=== PATIENT | female | born 1955 | race African-American/Black ===

== ENCOUNTER 2017-12-05 06:15 | Day surgery (SDC) | payer OTHER ==
[~2017-12-05] VITALS: Ht 162.6 cm; Wt 124.3 kg
[~2017-12-05 06:15] MED LIST: AMLODIPINE5 MG PO; ASPIRIN CHEWABL81 MG PO; ASPIRIN325 MG OR; ASPIRIN81 M1 OR; ATENOLOL50 MG PO; ATORVASTATIN CA20 MG PO; AVALIDE1 TA1 OR; AVELOX400 MG PO; BACTRIM DS1 TAB PO; BL ADULT ASA81 MG OR; CARAFATE1 GM/10 M1 OR; CARAFATE1 GM/10 M1 PO; CETIRIZINE10 MG PO; CIPRO XR500 M2 PO; CIPRO500 MG OR; CIPROFLOXACN500 MG PO; CLONIDINE0.1 MG PO; CLOPIDOGREL75 MG PO; COMPAZINE10 MG OR; DOXYCYCL HYC100 M3 PO; ESTRADIOL2 MG OR; FLAGYL500 MG OR; FOLIC ACID1 MG PO; FUROSEMIDE80 MG OR; HUMALOG100 MG/ML SC; HUMULIN R1 M1; HUMULIN R1 M1 SC; HYDRALAZINE50 MG PO; HYDROXYCHLOR200 MG PO; HYDROXYZ HCL25 MG PO; HYDROXYZ HCL50 MG OR; HYDROXYZ HCL50 MG PO; KEFLEX500 MG PO; KETOCONAZOLE2 % EX; KLOR-CON M2020 MEQ PO; KLOR-CON20 MEQ OR; LABETALOL200 MG PO; LANTUS100 MG/ML SC; LASIX 20 MG20 MG/TAB PO; LASIX 40 MG40 MG/TAB PO; LASIX 80 MG TAB80 M1 OR; LASIX80 MG OR; LASIX80 MG PO; LEVEMIR1000 UNITS SC; LEVOTHYROXIN100 MC1 OR; LEVOTHYROXIN100 MCG PO; LIPITOR20 MG OR; LISINOPRIL20 M1 OR; LISINOPRIL20 MG OR; LISINOPRIL20 MG PO; LOSARTAN POT50 MG PO; LOSARTAN POTASS50 MG PO; MECLIZINE25 MG PO; MEGESTROL AC20 MG OR; MEGESTROL ACETA20 MG PO; MELOXICAM7.5 MG PO; METFORMIN1000 MG PO; METFORMIN500 M1 PO; METFORMIN500 MG PO; METHYLDOPA250 MG PO; METHYLDOPA500 MG OR; METHYLDOPA500 MG PO; METOCLOPRAM5 MG OR; METOZOLV ODT5 MG OR; MULTIVITAMIN OR; NAPROSYN500 MG OR; NO; NORCO1 TA1 PO; NORVASC10 M1 PO; NOVOLOG100 IU/1 M SC; PENICILLN VK500 MG PO; PLAVIX75 MG OR; PLAVIX75 MG PO; PREDNISONE10 MG OR; PROTONIX40 MG PO; RESVERATROL; SIMVASTATIN20 MG OR; SIMVASTATIN20 MG PO; SULAR10 MG OR; SYNTHROID100 MCG PO; TENORMIN50 MG OR; TRAMADOL HCL50 MG PO; VITAMIN D50000 UN1 PO; ZOCOR20 MG PO; [UNRECOGNIZED DRUG - OTHER] OR
[2017-12-05 08:13] VITALS: BP 149/82
== END 2017-12-05 08:43 | disposition home or self-care (01) | DRG 552 ==
LOC: ORM 06:15
PROVIDERS: ATTEND Anesthesiology Pain Medicine
PROC: 3E0R33Z Introduction of Anti-inflammatory into Spinal Canal, Percutaneous Approach (ICD-10-PCS; principal; 2017-12-05)
PROC: 3E0R3BZ Introduction of Anesthetic Agent into Spinal Canal, Percutaneous Approach (ICD-10-PCS; 2017-12-05)
DX: M46.1 Sacroiliitis, not elsewhere classified (principal); M54.5 Low back pain

== ENCOUNTER → 2017-12-19 | Day surgery (SDC) | payer OTHER ==
[~2017-12-19] VITALS: Ht 162.6 cm; Wt 124.3 kg
== END | disposition home or self-care (01) | DRG 552 ==
LOC: ORM 06:11
PROVIDERS: ATTEND Anesthesiology Pain Medicine
DX: M46.1 Sacroiliitis, not elsewhere classified (principal); Z53.8 Procedure and treatment not carried out for other reasons

== ENCOUNTER 2018-01-14 08:05 | Emergency (ER) | payer OTHER ==
[~2018-01-14] VITALS: Ht 162.6 cm; Wt 100.0 kg
[2018-01-14] MEDS ORDERED: LEVEMIR100 UNIT/M SC (08:23)
[2018-01-14] MEDS ORDERED: HYDROXYCHLOR200 M1 PO (08:29)
[2018-01-14] MEDS ORDERED: OMEPRAZOLE10 MG PO (08:30)
[2018-01-14] MEDS ORDERED: CALCITRIOL0.25 MC1 PO (08:30)
[2018-01-14] MEDS ORDERED: D32000 UNI1 PO (08:31)
[2018-01-14] MEDS ORDERED: ASPERCREME LIDOCA41 TOP (09:04)
[2018-01-14 09:07] VITALS: BP 155/89
== END 2018-01-14 09:15 | disposition home or self-care (01) | DRG 556 ==
LOC: ED 08:05
DX: M25.511 Pain in right shoulder (principal); I11.9 Hypertensive heart disease without heart failure; E07.9 Disorder of thyroid, unspecified; M19.90 Unspecified osteoarthritis, unspecified site; E11.9 Type 2 diabetes mellitus without complications

== ENCOUNTER 2019-02-22 13:09 | Emergency (ER) | payer OTHER ==
[~2019-02-22] VITALS: Ht 162.6 cm; Wt 113.0 kg
[~2019-02-22 13:09] MED LIST changes: +ASPERCREME LIDOCA41 TOP; +CALCITRIOL0.25 MC1 PO; +D32000 UNI1 PO; +HM OMEPRAZOLE20 MG PO; +HYDROXYCHLOR200 M1 PO; +LEVEMIR100 UNIT/M SC
[2019-02-22 13:51] LABS: HEMOGLOBIN 9.7 g/dl (12.0-16.0); IMMATURE GRANULOCYTES 0.2 % (0.0-5.0); MEAN CELL VOLUME 89.9 fL CALC (80.0-100.0); MEAN CORPUSCULAR HGB 27.2 pG CALC (26.0-32.0); MEAN CORPUSCULAR HGB CONC 30.3 g/L CALC (32.0-36.0); NEUT# 2.43 thou/uL (2.00-7.15); RED BLOOD COUNT 3.56 mill/uL (4.20-5.60); RED CELL DISTRI WIDTH 14.6 % (11.5-15.5)
[2019-02-22 14:00] LABS: ALKALINE PHOSPHATASE 100 u/l (38-126); BUN 57 mg/dL (8-23); BUN/CREATININE RATIO 12 (12-20 (CALC)); CARBON DIOXIDE 22 mmol/l (22-30); CHLORIDE 115 mmol/l (95-108); CREATININE 4.6 mg/dL (0.5-1.0); GFR 10 ML/MIN (>=60 (CALC)); GFR FOR AFR.AMER. 12 ML/MIN (>=60 (CALC)); SGOT/AST 33 u/l (9-36); SODIUM 142 mmol/l (137-146); TOTAL PROTEIN 7.4 g/dL (6.3-8.2)
[2019-02-22 14:04] LABS: PROTHROMBIN TIME 10.4 SECONDS (9.0-12.5)
[2019-02-22 14:11] LABS: BILIRUBIN, TOTAL 0.6 mg/dL (0.0-1.4)
[2019-02-22] MEDS ORDERED: AURYXIA210 MG PO (14:23)
[2019-02-22 15:11] LABS: POTASSIUM 6.2 mmol/l (3.5-5.1)
[2019-02-22 15:13] LABS: ANION GAP 13 (6-22 (CALC))
[2019-02-22 17:56] LABS: URINE BILIRUBIN - DIPSTICK NEGATIVE (NEGATIVE); URINE BLOOD DIPSTICK SMALL (NEGATIVE); URINE COLOR YELLOW; URINE GLUCOSE - DIPSTICK NEGATIVE (NEGATIVE); URINE KETONE NEGATIVE (NEGATIVE); URINE NITRITE - DIPSTICK NEGATIVE (Negative); URINE PROTEIN - DIPSTICK TRACE mg/dL (NEG-TRACE); URINE SPECIFIC GRAVITY <=1.005; URINE UROBILINOGEN - DIPSTICK 0.2 E.U./dL (0.2)
[2019-02-22 18:13] LABS: URINE LEUK ESTERASE LARGE (NEGATIVE)
[2019-02-22 18:20] LABS: URINE BACTERIA MANY hpf; URINE SQUAMOUS EPITHELIAL CELL FEW EPI/hpf (0-FEW); URINE WBC TNTC WBC/hpf (0-5)
[2019-02-22 18:30] VITALS: BP 144/68
--- NOTE | 2019-02-25 14:10 | NUR ---
Final urine culture results growing E coli. Pt was discharged from [facility] on 02/24/19. Called pt x2, however no answer.
== END 2019-02-22 18:40 ==
LOC: ED 13:09
PROVIDERS: Emergency Medicine
DX: R00.1 Bradycardia, unspecified (principal); E87.5 Hyperkalemia; I12.9 Hypertensive chronic kidney disease with stage 1 through stage 4 chronic kidney disease, or unspecified chronic kidney disease; N18.9 Chronic kidney disease, unspecified; D64.9 Anemia, unspecified; R53.1 Weakness; B96.20 Unspecified Escherichia coli [E. coli] as the cause of diseases classified elsewhere

== ENCOUNTER 2019-03-16 18:47 | Emergency (ER) | payer OTHER ==
[~2019-03-16] VITALS: Ht 162.6 cm; Wt 113.0 kg
[~2019-03-16 18:47] MED LIST changes: +AURYXIA210 MG PO
[2019-03-16 19:12] LABS: HEMATOCRIT 29.5 % (37.0-47.0); IMMATURE GRANULOCYTES 0.6 % (0.0-5.0); MEAN CELL VOLUME 89.7 fL CALC (80.0-100.0); MEAN CORPUSCULAR HGB 27.4 pG CALC (26.0-32.0); MEAN CORPUSCULAR HGB CONC 30.5 g/L CALC (32.0-36.0); NEUT# 2.21 thou/uL (2.00-7.15); RED BLOOD COUNT 3.29 mill/uL (4.20-5.60); RED CELL DISTRI WIDTH 14.8 % (11.5-15.5)
[2019-03-16 20:17] LABS: ALKALINE PHOSPHATASE 139 u/l (38-126); BUN 65 mg/dL (8-23); BUN/CREATININE RATIO 13 (12-20 (CALC)); CARBON DIOXIDE 21 mmol/l (22-30); CHLORIDE 112 mmol/l (95-108); GFR 9 ML/MIN (>=60 (CALC)); GFR FOR AFR.AMER. 11 ML/MIN (>=60 (CALC)); MAGNESIUM 2.4 mg/dL (1.6-2.3); SGOT/AST 30 u/l (9-36); SODIUM 141 mmol/l (137-146); TOTAL PROTEIN 7.4 g/dL (6.3-8.2)
[2019-03-16 20:31] LABS: ANION GAP 15 (6-22 (CALC)); BILIRUBIN, TOTAL 0.3 mg/dL (0.0-1.4); POTASSIUM 6.7 mmol/l (3.5-5.1)
[2019-03-16 22:17] VITALS: BP 148/67
== END 2019-03-16 22:17 ==
LOC: ED 18:47
PROVIDERS: Emergency Medicine
DX: R00.1 Bradycardia, unspecified (principal); E87.5 Hyperkalemia; E11.22 Type 2 diabetes mellitus with diabetic chronic kidney disease; I12.0 Hypertensive chronic kidney disease with stage 5 chronic kidney disease or end stage renal disease; N18.6 End stage renal disease; Z79.4 Long term (current) use of insulin

== ENCOUNTER 2019-10-10 | Emergency (ER) | payer OTHER ==
[~2019-10-10] MED LIST changes: -LOSARTAN POT50 MG PO
[2019-10-10] MEDS ORDERED: ELIQUIS2.5 MG PO (22:16)
[2019-10-10] MEDS ORDERED: LASIX40 MG PO (22:17)
[2019-10-10 22:53] LABS: IMMATURE GRANULOCYTES 1.5 % (0.0-5.0); MEAN CELL VOLUME 90.5 fL CALC (80.0-100.0); MEAN CORPUSCULAR HGB 28.3 pG CALC (26.0-32.0); MEAN CORPUSCULAR HGB CONC 31.2 g/L CALC (32.0-36.0); NEUT# 2.4 thou/uL (2.00-7.15); RED BLOOD COUNT 4.53 mill/uL (4.20-5.60); RED CELL DISTRI WIDTH 15.4 % (11.5-15.5)
[2019-10-10 22:54] LABS: HEMOGLOBIN 12.8 g/dl (12.0-16.0)
[2019-10-10 23:03] LABS: ALBUMIN 4.1 g/dL (3.2-5.0); BILIRUBIN, TOTAL 0.5 mg/dL (0.0-1.4); MAGNESIUM 2.2 mg/dL (1.6-2.3); POTASSIUM 4.2 mmol/l (3.5-5.1); TOTAL PROTEIN 8.1 g/dL (6.3-8.2)
[2019-10-10 23:10] LABS: CREATININE 5.1 mg/dL (0.5-1.0)
[2019-10-10] MEDS ORDERED: ANTIVERT PO (23:37)
[2019-10-10] MEDS ORDERED: ALLEGRA-D 2424 HOUR PO (23:37)
== END 2019-10-10 23:55 | disposition home or self-care (01) ==
PROVIDERS: Family Medicine
DX: J06.9 Acute upper respiratory infection, unspecified (principal); I10 Essential (primary) hypertension; E11.9 Type 2 diabetes mellitus without complications; Z79.4 Long term (current) use of insulin; R42 Dizziness and giddiness

== ENCOUNTER 2020-01-16 10:06 | Emergency (ER) | payer OTHER ==
[~2020-01-16 10:06] MED LIST changes: +ALLEGRA-D 2424 HOUR PO; +ANTIVERT PO; +ELIQUIS2.5 MG PO; +LASIX40 MG PO
[2020-01-16 11:25] LABS: HEMATOCRIT 41.4 % (37.0-47.0); HEMOGLOBIN 13.3 g/dl (12.0-16.0); IMMATURE GRANULOCYTES 1.9 % (0.0-5.0); MEAN CORPUSCULAR HGB 28.9 pG CALC (26.0-32.0); MEAN CORPUSCULAR HGB CONC 32.1 g/dL CAL (32.0-36.0); NEUT# 2.59 thou/uL (2.00-7.15); RED BLOOD COUNT 4.6 mill/uL (4.20-5.60); RED CELL DISTRI WIDTH 13.5 % (11.5-15.5)
[2020-01-16 11:51] LABS: CREATININE 6.6 mg/dL (0.5-1.0)
[2020-01-16] MEDS ORDERED: HYDROXYCHLOR200 M1 PO (12:20)
[2020-01-16] MEDS ORDERED: AMLODIPINE BESY10 MG PO (12:21)
[2020-01-16] MEDS ORDERED: FUROSEMIDE80 M1 PO (12:22)
[2020-01-16] MEDS ORDERED: VITAMIN D350000 UNIT PO (12:24)
[2020-01-16] MEDS ORDERED: PANTOPRAZOLE SO40 M1 PO (12:24)
[2020-01-16] MEDS ORDERED: GABAPENTIN100 MG PO (12:25)
[2020-01-16 12:30] VITALS: BP 116/74
== END 2020-01-16 12:30 | disposition left against medical advice (07) ==
LOC: ED 10:06
PROVIDERS: Family Medicine
DX: T82.898A Other specified complication of vascular prosthetic devices, implants and grafts, initial encounter (principal); E11.22 Type 2 diabetes mellitus with diabetic chronic kidney disease; I12.0 Hypertensive chronic kidney disease with stage 5 chronic kidney disease or end stage renal disease; N18.6 End stage renal disease; Y83.2 Surgical operation with anastomosis, bypass or graft as the cause of abnormal reaction of the patient, or of later complication, without mention of misadventure at the time of the procedure; Z79.4 Long term (current) use of insulin; Z99.2 Dependence on renal dialysis

== ENCOUNTER 2020-05-21 16:27 | Emergency (ER) | payer OTHER ==
[~2020-05-21] VITALS: Ht 162.6 cm; Wt 105.0 kg
[~2020-05-21 16:27] MED LIST changes: +AMLODIPINE BESY10 MG PO; +FUROSEMIDE80 M1 PO; +GABAPENTIN100 MG PO; +PANTOPRAZOLE SO40 M1 PO; +VITAMIN D350000 UNIT PO
[2020-05-21] MEDS ORDERED: MIDODRINE5 MG PO (16:47)
[2020-05-21] MEDS ORDERED: ULTRAM50 M1 PO (17:40)
[2020-05-21] MEDS ORDERED: FLEXERIL PO (17:40)
[2020-05-21 17:42] VITALS: BP 130/75
== END 2020-05-21 17:57 | disposition home or self-care (01) ==
LOC: ED 16:27
DX: M54.42 Lumbago with sciatica, left side (principal); I10 Essential (primary) hypertension; E11.9 Type 2 diabetes mellitus without complications; Z79.4 Long term (current) use of insulin

== ENCOUNTER 2020-05-23 08:00 | Emergency (ER) | payer OTHER ==
[~2020-05-23] VITALS: Ht 162.6 cm; Wt 100.0 kg
[~2020-05-23 08:00] MED LIST changes: +FLEXERIL PO; +MIDODRINE5 MG PO; +ULTRAM50 M1 PO
[2020-05-23] MEDS ORDERED: MEDDOSEPAK PO (09:24)
[2020-05-23 10:30] VITALS: BP 126/64
== END 2020-05-23 10:40 | disposition home or self-care (01) ==
LOC: ED 08:00
DX: M54.42 Lumbago with sciatica, left side (principal); E11.22 Type 2 diabetes mellitus with diabetic chronic kidney disease; I12.0 Hypertensive chronic kidney disease with stage 5 chronic kidney disease or end stage renal disease; N18.6 End stage renal disease; Z99.2 Dependence on renal dialysis; Z79.4 Long term (current) use of insulin

== ENCOUNTER 2020-05-27 06:46 | Emergency (ER) | payer OTHER ==
[~2020-05-27] VITALS: Ht 162.6 cm; Wt 101.0 kg
[~2020-05-27 06:46] MED LIST changes: +MEDDOSEPAK PO
[2020-05-27] MEDS ORDERED: HYDROCO/APAP1 TA9 PO (08:12)
[2020-05-27 08:25] VITALS: BP 112/57
== END 2020-05-27 08:42 | disposition home or self-care (01) ==
LOC: ED 06:46
DX: M54.42 Lumbago with sciatica, left side (principal); E11.22 Type 2 diabetes mellitus with diabetic chronic kidney disease; I12.0 Hypertensive chronic kidney disease with stage 5 chronic kidney disease or end stage renal disease; N18.6 End stage renal disease; Z99.2 Dependence on renal dialysis; Z79.4 Long term (current) use of insulin

== ENCOUNTER 2020-06-18 10:25 | Emergency (ER) | payer OTHER ==
[~2020-06-18] VITALS: Ht 162.6 cm; Wt 95.0 kg
[~2020-06-18 10:25] MED LIST changes: +HYDROCO/APAP1 TA9 PO
[2020-06-18 11:25] VITALS: BP 128/90
[2020-06-18 12:11] LABS: HEMATOCRIT 41.9 % (37.0-47.0); HEMOGLOBIN 12.8 g/dl (12.0-16.0); IMMATURE GRANULOCYTES 4.5 % (0.0-5.0); MEAN CELL VOLUME 90.7 fL CALC (80.0-100.0); MEAN CORPUSCULAR HGB 27.7 pG CALC (26.0-32.0); MEAN CORPUSCULAR HGB CONC 30.5 g/dL CAL (32.0-36.0); NEUT# 6.39 thou/uL (2.00-7.15); RED BLOOD COUNT 4.62 mill/uL (4.20-5.60); RED CELL DISTRI WIDTH 14.7 % (11.5-15.5)
== END 2020-06-18 11:25 ==
LOC: ED 10:25
DX: T82.49XA Other complication of vascular dialysis catheter, initial encounter (principal); E11.22 Type 2 diabetes mellitus with diabetic chronic kidney disease; I12.0 Hypertensive chronic kidney disease with stage 5 chronic kidney disease or end stage renal disease; N18.6 End stage renal disease; Z79.4 Long term (current) use of insulin; Z99.2 Dependence on renal dialysis; Y83.8 Other surgical procedures as the cause of abnormal reaction of the patient, or of later complication, without mention of misadventure at the time of the procedure

== ENCOUNTER 2020-07-10 08:50 | Emergency (ER) | payer OTHER ==
[~2020-07-10] VITALS: Ht 162.6 cm; Wt 100.9 kg
[2020-07-10] MEDS ORDERED: FLOXIN OTIC0.3 % AU (10:19)
[2020-07-10] MEDS ORDERED: AMOXICILLIN875 MG PO (10:19)
[2020-07-10] MEDS ORDERED: ULTRAM50 M1 PO (10:20)
[2020-07-10 10:29] VITALS: BP 103/69
== END 2020-07-10 10:43 | disposition home or self-care (01) ==
LOC: ED 08:50
DX: H66.91 Otitis media, unspecified, right ear (principal); E11.22 Type 2 diabetes mellitus with diabetic chronic kidney disease; I12.0 Hypertensive chronic kidney disease with stage 5 chronic kidney disease or end stage renal disease; N18.6 End stage renal disease; Z99.2 Dependence on renal dialysis

== ENCOUNTER 2020-08-01 09:52 | Emergency (ER) | payer OTHER ==
[~2020-08-01] VITALS: Ht 162.6 cm; Wt 105.0 kg
[~2020-08-01 09:52] MED LIST changes: +AMOXICILLIN875 MG PO; +FLOXIN OTIC0.3 % AU
[2020-08-01] MEDS ORDERED: PROTONIX40 M2 PO (10:33)
[2020-08-01] MEDS ORDERED: HYDROXYCHLOR200 M1 PO (10:34)
[2020-08-01] MEDS ORDERED: AURYXIA210 MG PO (10:34)
[2020-08-01] MEDS ORDERED: NAPROXEN500 MG PO (10:35)
[2020-08-01] MEDS ORDERED: CIPROFLOXACN500 MG PO (10:35)
[2020-08-01] MEDS ORDERED: CLOPIDOGREL75 MG PO (10:37)
[2020-08-01] MEDS ORDERED: LIPITOR20 M1 PO (10:38)
[2020-08-01] MEDS ORDERED: FUROSEMIDE20 MG PO (10:38)
[2020-08-01 10:45] VITALS: BP 178/75
== END 2020-08-01 10:46 | disposition home or self-care (01) ==
LOC: ED 09:52
DX: G56.02 Carpal tunnel syndrome, left upper limb (principal); H66.91 Otitis media, unspecified, right ear; E11.22 Type 2 diabetes mellitus with diabetic chronic kidney disease; I12.0 Hypertensive chronic kidney disease with stage 5 chronic kidney disease or end stage renal disease; N18.6 End stage renal disease; Z99.2 Dependence on renal dialysis

== ENCOUNTER 2020-08-10 07:43 | Emergency (ER) | payer OTHER ==
[~2020-08-10] VITALS: Ht 162.6 cm; Wt 101.0 kg
[~2020-08-10 07:43] MED LIST changes: +CYCLOBENZAPR5 MG PO; +FUROSEMIDE20 MG PO; +LIPITOR20 M1 PO; +NAPROXEN500 MG PO; +PROTONIX40 M2 PO; +VITAMIN D350000 UNI1 PO
[2020-08-10] MEDS ORDERED: GABAPENTIN300 M2 PO (08:46)
[2020-08-10 09:25] VITALS: BP 101/60
== END 2020-08-10 09:35 | disposition home or self-care (01) ==
LOC: ED 07:43
DX: G56.02 Carpal tunnel syndrome, left upper limb (principal); I12.0 Hypertensive chronic kidney disease with stage 5 chronic kidney disease or end stage renal disease; E11.22 Type 2 diabetes mellitus with diabetic chronic kidney disease; N18.6 End stage renal disease; Z99.2 Dependence on renal dialysis; Z79.4 Long term (current) use of insulin

== ENCOUNTER 2020-09-09 12:04 | Emergency (ER) | payer OTHER ==
[~2020-09-09] VITALS: Ht 162.6 cm; Wt 100.0 kg
[~2020-09-09 12:04] MED LIST changes: +GABAPENTIN300 M2 PO
[2020-09-09 14:38] LABS: IMMATURE GRANULOCYTES 1.9 % (0.0-5.0); MEAN CELL VOLUME 93.7 fL CALC (80.0-100.0); MEAN CORPUSCULAR HGB CONC 29.9 g/dL CAL (32.0-36.0); NEUT# 5.48 thou/uL (2.00-7.15); RED BLOOD COUNT 3.5 mill/uL (4.20-5.60); RED CELL DISTRI WIDTH 16.4 % (11.5-15.5)
[2020-09-09 14:53] LABS: ALBUMIN 3.5 g/dL (3.2-5.0); HEMATOCRIT 32.8 % (37.0-47.0); HEMOGLOBIN 9.8 g/dl (12.0-16.0); POTASSIUM 4.9 mmol/l (3.5-5.1); TOTAL PROTEIN 7.5 g/dL (6.3-8.2)
[2020-09-09 15:07] LABS: BILIRUBIN, TOTAL 0.3 mg/dL (0.0-1.4); CREATININE 6.9 mg/dL (0.5-1.0)
[2020-09-09 21:27] VITALS: BP 76/43
== END 2020-09-09 21:23 | disposition short-term general hospital (02) ==
LOC: ED 12:04
PROVIDERS: Family Medicine
DX: L03.115 Cellulitis of right lower limb (principal); L98.9 Disorder of the skin and subcutaneous tissue, unspecified; E11.22 Type 2 diabetes mellitus with diabetic chronic kidney disease; I12.0 Hypertensive chronic kidney disease with stage 5 chronic kidney disease or end stage renal disease; N18.6 End stage renal disease; Z99.2 Dependence on renal dialysis; Z79.4 Long term (current) use of insulin

== ENCOUNTER 2020-09-29 09:30 | Emergency (ER) | payer OTHER ==
[~2020-09-29] VITALS: Ht 162.6 cm; Wt 118.0 kg
[2020-09-29 10:51] LABS: HEMOGLOBIN 9.1 g/dl (12.0-16.0); MEAN CELL VOLUME 90.1 fL CALC (80.0-100.0); MEAN CORPUSCULAR HGB 27.3 pG CALC (26.0-32.0); MEAN CORPUSCULAR HGB CONC 30.3 g/dL CAL (32.0-36.0); RED BLOOD COUNT 3.33 mill/uL (4.20-5.60); RED CELL DISTRI WIDTH 15.9 % (11.5-15.5)
[2020-09-29 11:19] LABS: ALBUMIN 3.2 g/dL (3.2-5.0); MAGNESIUM 2.1 mg/dL (1.6-2.3); PLATELET COUNT 186 thou/uL (130-400); POTASSIUM 4.4 mmol/l (3.5-5.1); TOTAL PROTEIN 6.4 g/dL (6.3-8.2)
[2020-09-29 11:20] LABS: MANUAL DIFFERENTIAL YES
[2020-09-29 11:21] LABS: PLATELET ESTIMATE NORMAL; POIKILOCYTOSIS FEW; SCHISTOCYTES FEW
[2020-09-29 11:23] LABS: BILIRUBIN, TOTAL 0.5 mg/dL (0.0-1.4); CREATININE 5.1 mg/dL (0.5-1.0)
[2020-09-29 12:00] VITALS: BP 156/79
== END 2020-09-29 12:00 | disposition home or self-care (01) ==
LOC: ED 09:30
PROVIDERS: Student in an Organized Health Care Education/Training Program
DX: M79.605 Pain in left leg (principal); M79.604 Pain in right leg; E11.22 Type 2 diabetes mellitus with diabetic chronic kidney disease; I12.0 Hypertensive chronic kidney disease with stage 5 chronic kidney disease or end stage renal disease; N18.6 End stage renal disease; Z99.2 Dependence on renal dialysis; Z79.4 Long term (current) use of insulin

== ENCOUNTER 2020-10-01 15:26 | Emergency (ER) | payer OTHER ==
[~2020-10-01] VITALS: Ht 162.6 cm; Wt 100.0 kg
[2020-10-01 15:49] VITALS: BP 206/136
[2020-10-01 16:13] LABS: HEMATOCRIT 35.2 % (37.0-47.0); HEMOGLOBIN 10.7 g/dl (12.0-16.0); IMMATURE GRANULOCYTES 6.7 % (0.0-5.0); MEAN CELL VOLUME 89.1 fL CALC (80.0-100.0); MEAN CORPUSCULAR HGB 27.1 pG CALC (26.0-32.0); MEAN CORPUSCULAR HGB CONC 30.4 g/dL CAL (32.0-36.0); PLATELET COUNT 196 thou/uL (130-400); RED BLOOD COUNT 3.95 mill/uL (4.20-5.60); RED CELL DISTRI WIDTH 17.9 % (11.5-15.5)
[2020-10-01 16:15] LABS: MANUAL DIFFERENTIAL YES
[2020-10-01 16:34] LABS: PLATELET ESTIMATE NORMAL
[2020-10-01] MEDS ORDERED: LASIX80 MG PO (17:09)
[2020-10-01] MEDS ORDERED: VITAMIN D50000 UNIT (17:12)
== END 2020-10-01 17:30 | disposition short-term general hospital (02) ==
LOC: ED 15:26
PROVIDERS: Family Medicine
DX: I63.9 Cerebral infarction, unspecified (principal); R47.01 Aphasia; R29.810 Facial weakness; G83.89 Other specified paralytic syndromes; R29.712 NIHSS score 12; U07.1 COVID-19; E11.22 Type 2 diabetes mellitus with diabetic chronic kidney disease; I12.0 Hypertensive chronic kidney disease with stage 5 chronic kidney disease or end stage renal disease; N18.6 End stage renal disease; S81.801D Unspecified open wound, right lower leg, subsequent encounter; X58.XXXD Exposure to other specified factors, subsequent encounter; Z79.4 Long term (current) use of insulin; Z99.2 Dependence on renal dialysis

== ENCOUNTER 2020-12-30 11:04 | Emergency (ER) | payer OTHER ==
[~2020-12-30 11:04] MED LIST changes: +VITAMIN D50000 UNIT
[2020-12-30] MEDS ORDERED: DOXYCYC MONO100 M2 PO (12:47)
[2020-12-30] MEDS ORDERED: CHERATUSSIN PO (13:02)
[2020-12-30 13:06] VITALS: BP 163/62
== END 2020-12-30 13:08 | disposition home or self-care (01) ==
LOC: ED 11:04
DX: J06.9 Acute upper respiratory infection, unspecified (principal); I12.0 Hypertensive chronic kidney disease with stage 5 chronic kidney disease or end stage renal disease; E11.22 Type 2 diabetes mellitus with diabetic chronic kidney disease; N18.6 End stage renal disease; Z99.2 Dependence on renal dialysis; Z79.4 Long term (current) use of insulin; Z86.73 Personal history of transient ischemic attack (TIA), and cerebral infarction without residual deficits; Z86.16 Personal history of COVID-19; Z20.822 Contact with and (suspected) exposure to COVID-19

== ENCOUNTER 2021-01-18 09:43 | Emergency (ER) | payer OTHER ==
[~2021-01-18] VITALS: Ht 162.6 cm; Wt 84.5 kg
[~2021-01-18 09:43] MED LIST changes: +CHERATUSSIN PO; +DOXYCYC MONO100 M2 PO
[2021-01-18 10:05] VITALS: BP 127/63
[2021-01-18 11:06] LABS: HEMATOCRIT 31.4 % (37.0-47.0); HEMOGLOBIN 9.6 g/dl (12.0-16.0); IMMATURE GRANULOCYTES 0.6 % (0.0-5.0); MEAN CELL VOLUME 89.5 fL CALC (80.0-100.0); MEAN CORPUSCULAR HGB 27.4 pG CALC (26.0-32.0); MEAN CORPUSCULAR HGB CONC 30.6 g/dL CAL (32.0-36.0); NEUT# 5.7 thou/uL (2.00-7.15); RED BLOOD COUNT 3.51 mill/uL (4.20-5.60)
[2021-01-18 11:34] LABS: ALBUMIN 3.7 g/dL (3.2-5.0); BILIRUBIN, TOTAL 0.4 mg/dL (0.0-1.4); C-REACTIVE PROTEIN 3.9 mg/dL (0-0.9); CREATININE 4.7 mg/dL (0.5-1.0); POTASSIUM 3.7 mmol/l (3.5-5.1); TOTAL PROTEIN 7.5 g/dL (6.3-8.2)
== END 2021-01-18 13:49 ==
LOC: ED 09:43
PROVIDERS: Family Medicine
DX: I21.4 Non-ST elevation (NSTEMI) myocardial infarction (principal); E11.22 Type 2 diabetes mellitus with diabetic chronic kidney disease; I12.0 Hypertensive chronic kidney disease with stage 5 chronic kidney disease or end stage renal disease; N18.6 End stage renal disease; Z99.2 Dependence on renal dialysis; Z79.4 Long term (current) use of insulin; Z86.73 Personal history of transient ischemic attack (TIA), and cerebral infarction without residual deficits; Z86.16 Personal history of COVID-19; Z20.822 Contact with and (suspected) exposure to COVID-19
CPT/HCPCS: J1644